=== PATIENT | male | born 1990 | race African-American/Black ===

== ENCOUNTER 2022-10-25 01:12 | Emergency (ER) | payer MEDICAID ==
[~2022-10-25] VITALS: Ht 170.2 cm; Wt 61.2 kg
[2022-10-25 01:33] VITALS: BP 139/90
--- NOTE | 2022-10-25 01:33 | NUR ---
bilateral foot pain 09/16.
--- NOTE | 2022-10-25 01:36 | NUR ---
TO LOBBY A/W BED AMBULATORY.
--- NOTE | 2022-10-25 02:33 | NUR ---
PT TO BED #1
[2022-10-25] MEDS ORDERED: ACETAMINOPHEN 325 MG TAB PO ONE (03:20)
[2022-10-25] MEDS ORDERED: ACETAMINOPHEN 325 MG TAB ONE (03:33)
[2022-10-25 04:45] VITALS: BP 139/90
--- NOTE | 2022-10-25 05:01 | NUR ---
Patient discharged with v/s stable. Written and verbal after care instructions given and explained. Patient verbalized understanding. Ambulatory with steady gait. All questions addressed prior to discharge. Advised to follow up with PMD. Pt left with his belongings
== END 2022-10-25 05:01 | disposition home or self-care (01) ==
LOC: MED 01:12
DX: M79.672 Pain in left foot (principal); M79.671 Pain in right foot; R10.10 Upper abdominal pain, unspecified; R42 Dizziness and giddiness; Z79.899 Other long term (current) drug therapy
CPT/HCPCS: 99282